=== PATIENT | male | born 1965 | race Caucasian/White ===

== ENCOUNTER 2016-11-17 20:25 | Observation (INO) ==
[2016-11-17] MEDS ORDERED: *HR* HYDROmorphone (PF) 1 MG/ML SYRINGE IVP ONE (20:50)
--- NOTE | 2016-11-17 20:58 | Emergency Department Note ---
Disposition Clinical Impression: Syncope and collapse Laceration of chin Qualifiers: Encounter type: initial encounter Qualified Code(s): S01.81XA - Laceration without foreign body of other part of head, initial encounter Chest pain Qualifiers: Chest pain type: unspecified Qualified Code(s): R07.9 - Chest pain, unspecified Disposition: Admitted As Inpatient Condition: Fair Time of Disposition: 23:00 General Adult HPI - General Chief complaint: ED Syncope Stated complaint: syncope Time Seen by Provider: 11/17/16 20:34 Source: EMS Mode of arrival: EMS Limitations: no limitations Nursing Notes Reviewed: Yes Vital Signs Reviewed: Yes - History of Present Illness HPI Narrative: Patient is a 51-year-old male with a past medical history of a stroke with no residual deficits who presents to the emergency Department by squad prior to arrival the patient had a syncopal episode and fell forward onto his face. Patient states he was in the grocery store he is walking and he had a coughing fit and then the next he remembers he was on the floor with a bloody nose and chin. EMS states that on arrival the patient was hypotensive at 70's over 40's however they gave him a 1 L bolus and the patient became normotensive. The patient states that he was recently diagnosed with bronchitis 3 weeks ago and has had coughing fits over the past 3 weeks. He is also complaining of some central chest pain that is pressure like that has been going on since after the fall. He denies any sensory or motor loss. No urinary or bowel incontinence. No history of blood clots. He states his chest pain is not worse with a deep breath and is constant. He denies any nausea, vomiting he states he did become diaphoretic in the ambulance no radiation of his chest pain. Pain Scale: 5 - Related Data Home Medications Medication Instructions Recorded Confirmed Aspirin 81 mg PO DAILY 07/06/16 11/17/16 Atorvastatin Calcium [Lipitor] 80 mg PO HS 07/06/16 11/17/16 Allergies Allergy/AdvReac Type Severity Reaction Status Date / Time No Known Allergies Allergy Verified 07/21/16 13:35 All systems ED: reviewed and negative except as stated. Constitutional: Denies: fever, chills Cardiovascular: Reports: chest pain, syncope. Denies: palpitations, dyspnea on exertion Respiratory: Reports: cough. Denies: dyspnea, wheezes, hemoptysis Gastrointestinal: Denies: abdominal pain, nausea, vomiting, diarrhea Musculoskeletal: Denies: back pain, neck pain Neurological: Denies: headache, weakness, numbness, paresthesias, confusion Past Medical History - Past Medical History Medical history: Reports: non-contributory, CVA Psychiatric history: Reports: no psych history - Social History Smoking Status: Current every day smoker Smokeless Tobacco Status: No Alcohol use: Reports: none, occasionally Drug use: Reports: none Physical Exam Patient arrived by stretcher by squad. In the room the patient has a bandage on his head to cover his chin wound he also has some dried red blood in his both nares. He is alert and oriented 3 and speaking in full sentences he does not appear to be in any distress however he does seem to have some chest discomfort. - General Limitations: no limitations General appearance: alert, in no apparent distress - Head Head exam: normocephalic, other (Patient does have a 3.5 cm linear laceration on his inferior chin. The bleeding is controlled at this time. The wound is open by about half a centimeter. It appears to go into the subcutaneous tissue. ) - ENT ENT exam: normal oropharynx, mucous membranes moist, TM's normal bilaterally, normal external ear exam - Expanded ENT Exam TM/Canal: Hemotympanum: Negative, Bulging: Negative, Effusion: Negative Nose exam: other (Patient has dried blood in both nares. ). negative: septal hematoma Mouth exam: Present: normal external inspection, tongue normal. Absent: drooling, lip swelling Teeth exam: Absent: gingival swelling Throat exam: Present: normal inspection - Neck Neck exam: Present: normal inspection, full ROM, trachea midline. Absent: tenderness - Chest Chest inspection: Present: symmetric chest wall rise, tenderness (Patient's chest pain is reproducible over the sternum and the right side.) - Respiratory Respiratory exam: Present: normal lung sounds bilaterally. Absent: respiratory distress - Cardiovascular Cardiovascular exam: Present: regular rate, normal rhythm, normal heart sounds - Abdominal Exam Abdominal exam: Present: soft, Non-Tender, normal bowel sounds - Extremities Exam Extremities exam: Present: normal inspection, full ROM, normal capillary refill. Absent: tenderness, pedal edema, joint swelling - Expanded Lower Extremity Exam Neurovascular/Tendon exam: Present: normal capillary refill. Absent: pulse deficit, motor deficit, sensory deficit - Back Exam Back exam: Present: normal inspection, full ROM. Absent: tenderness, paraspinal tenderness, vertebral tenderness - Neurological Exam Neurological exam: Present: alert, oriented X3, CN II-XII intact. Absent: motor sensory deficit - Expanded Neurological Exam Patient oriented to: Present: person, place, time Speech: Present: fluid speech Cranial nerves: EOM function (II, III, IV, ): Normal, facial sensation (V): Normal, facial palsy (VII): Normal, gag reflex (IX): Normal, spinal accessory function (XI): Normal, tongue deviation (XII): Normal Cerebellar function: finger to nose: Normal, heel to hung: Normal Motor strength - LUE: 5/5 Motor strength - RUE: 5/5 Motor strength - LLE: 5/5 Motor strength - RLE: 5/5 Upper motor neuron exam: pronator drift: Absent bilaterally Sensory exam upper extremity: light touch: Normal Sensory exam lower extremity: light touch: Normal DTR: bicep (L): 2+, bicep (R): 2+, patellar (L): 2+, patellar (R): 2+ Coma Scale Eye Opening: Spontaneous Coma Scale Motor Response: Obeys Commands Coma Scale Verbal Response: Oriented Coma Scale Total: 15 - Psychiatric Psychiatric exam: Present: normal affect, normal mood - Skin Skin exam: Present: warm, dry, intact, normal color Course Course Narrative: Patient is a 51-year-old male with a history of stroke with no residual deficits and the recently diagnosed bronchitis that was walking in a store knee had a coughing fit and he woke up face down on the floor with a bloody chin and a bloody nose. The patient also has some chest pain after the fall. She does not have any focal neurological deficits. His chest pain is reproducible. He is alert and oriented 3 and in no distress. He does have a chin laceration at about 3 cm in length. Due the patient's mechanism of injury of ordered a CT of his head and the C-spine. Also we will perform a cardiac workup of the patient. Including a chest x-ray. Also ordered d-dimer due to the description of the patient having a syncopal episode. No history of blood clots. The patient states he thinks he may be on blood thinners he is unsure. I will treat his pain while he is here. I will also order a CT of his facial bones due to his nose injury and is chin laceration. It if this is all normal and no foreign body is seen we will clean and irrigate the wound on his chin and suture it closed. - Reevaluation(s) Reevaluation #1: After the patient of his negative CT scans. I also discussed with them earlier the reason for his CTA of his chest due to his elevated d-dimer. I discussed with the patient like to admit him just for further observation and evaluation of the syncope. The patient states that he would feel more comfortable being admitted. I plan is to suture his laceration and admit the patient to the hospitalist. Patient agrees with that plan. Time: 22:38 Reevaluation #2: I discussed the patient's case with Dr. Polanco. Dr. Polanco agrees to admit the patient for further evaluation of the syncope. Time: 22:59 Vital Signs Temperature 0 F L 11/17/16 20:27 Pulse Rate 64 11/17/16 20:27 Respiratory Rate 18 11/17/16 20:27 Blood Pressure 99/91 11/17/16 20:27 O2 Sat by Pulse Oximetry 95 11/17/16 20:27 Temperature 98.2 F 11/18/16 00:43 Pulse Rate 62 11/18/16 00:43 Respiratory Rate 18 11/18/16 00:43 Blood Pressure 121/67 11/18/16 00:43 O2 Sat by Pulse Oximetry 97 11/18/16 00:43 Oxygen Delivery Oxygen Delivery Room Air Procedures - Laceration Laceration 1 Site: face Size (cm): 3 Description: linear Depth: simple, single layer Local Anesthetic: lidocaine 1%, with epi Pre-repair: wound explored, irrigated extensively, deep structures intact, wound margins revised Skin layer closed with: nylon Size: 3-0 Number of sutures/esther: 5 Technique: simple, interrupted, other (1 vertical mattress) Medical Decision Making - Medical Records Medical records reviewed: Yes I reviewed the patient's medical records. - Lab Data Lab results reviewed: Yes I reviewed the patient's lab results. Result diagrams: 11/17/16 20:50 11/17/16 20:50 Lab Results 11/17/16 11/17/16 11/17/16 Range/Units 20:50 20:50 20:50 WBC 18.3 H (4.3-11.1) K/mcL RBC 4.82 (4.19-5.50) M/mcL Hgb 15.2 (12.9-16.9) g/dL Hct 45.1 (37.5-50.1) % MCV 93.6 (83.0-100.0) fL MCH 31.5 (28.0-33.3) pg MCHC 33.7 (31.6-35.5) g/dL RDW 12.6 (11.5-14.5) % Plt Count 230 (140-400) K/mcL MPV 10.1 (9.4-12.4) fL Immature Gran % 0.4 (0-4) % Seg Neutrophils % 86.5 % Lymphocytes % 7.3 % Monocytes % 4.7 % Eosinophils % 0.8 % Basophils % 0.3 % Neutrophils # 15.8 H (1.6-8.9) K/mcL Lymphocytes # 1.3 (0.6-4.6) K/mcL Monocytes # 0.9 (0.0-1.3) K/mcL Eosinophils # 0.2 (0.0-0.6) K/mcL Basophils # 0.1 (0.0-0.2) K/mcL PT 10.8 (9.4-12.1) Seconds INR 1.0 D-Dimer 2009 H (0-500) ng/mLFEU Sodium 139 (136-145) mEq/L Potassium 4.3 (3.5-4.5) mEq/L Chloride 106 (98-109) mEq/L Carbon Dioxide 26 (19-29) mEq/L BUN 8 (8-26) mg/dL Creatinine 1.00 (0.72-1.25) mg/dL Est GFR ( Amer) > 60 (> 60) Est GFR (Non-Af Amer) > 60 (> 60) BUN/Creatinine Ratio 8 (6-26) Glucose 107 H (70-99) mg/dL Calculated Osmolality 287 (280-300) Calcium 8.6 (8.6-10.8) mg/dL Troponin I (0-0.03) ng/mL 11/17/16 Range/Units 20:50 WBC (4.3-11.1) K/mcL RBC (4.19-5.50) M/mcL Hgb (12.9-16.9) g/dL Hct (37.5-50.1) % MCV (83.0-100.0) fL MCH (28.0-33.3) pg MCHC (31.6-35.5) g/dL RDW (11.5-14.5) % Plt Count (140-400) K/mcL MPV (9.4-12.4) fL Immature Gran % (0-4) % Seg Neutrophils % % Lymphocytes % % Monocytes % % Eosinophils % % Basophils % % Neutrophils # (1.6-8.9) K/mcL Lymphocytes # (0.6-4.6) K/mcL Monocytes # (0.0-1.3) K/mcL Eosinophils # (0.0-0.6) K/mcL Basophils # (0.0-0.2) K/mcL PT (9.4-12.1) Seconds INR D-Dimer (0-500) ng/mLFEU Sodium (136-145) mEq/L Potassium (3.5-4.5) mEq/L Chloride (98-109) mEq/L Carbon Dioxide (19-29) mEq/L BUN (8-26) mg/dL Creatinine (0.72-1.25) mg/dL Est GFR ( Amer) (> 60) Est GFR (Non-Af Amer) (> 60) BUN/Creatinine Ratio (6-26) Glucose (70-99) mg/dL Calculated Osmolality (280-300) Calcium (8.6-10.8) mg/dL Troponin I 0.00 (0-0.03) ng/mL - Radiology Data Radiology results reviewed: Yes I reviewed the patient's radiology results. Attestation Statement - Attestation Attestation: I personally interviewed and examined this patient and my medical decision- making was reviewed with the Resident Physician, Dr. Pierre. I agree with the documented findings, disposition and treatment plan as described except to the extent set forth below. Patient is a 51-year-old white male, who presents to the emergency department today by EMS after medics were called for an unresponsive patient. Medics report that the patient was seated on a curb and was having transient altered mental status changes on their arrival. After they arrived he did have a second syncopal episode witnessed by medics and on their vitals was significantly hypotensive. Initiated IV fluids, an Accu-Chek which was within normal limits and brought the patient to the ED. Apparently he was coughing while in a store and had a syncopal episode in which he fell forward striking his chin on the ground and sustaining a superficial chin LAC. Patient reports upon waking he was still feeling very lightheaded and was having some chest tightness with ongoing cough. Patient arrived to the emergency department awake alert and oriented 4 with a GCS 15 on arrival. Speech was clear and no focal neurologic deficits. Initial vitals in the ED were much improved with a normal heart rate and blood pressure. Patient had received about 600 mL's of fluid by the time he arrived to the ED. Patient complained of some recent upper respiratory symptoms and bronchitis-like symptoms but felt that most of the pleuritic chest pain began following the initial syncope. I agree with patient's physical exam findings as documented. Patient's EKG showed no acute ischemic changes. Patient was continued on a environmental monitoring specialist and continuous pulse ox, submental oxygen was placed in a cervical collar for C-spine immobilization IV was established and labs are drawn and sent. Patient remained hemodynamically stable throughout his ED course. He had no recurrent symptoms of lightheadedness or syncope. Patient's neurologic exam remained stable over time as well. Patient had an update of his tetanus and was sent for imaging CT scan of his head maxillofacial bones cervical spine, chest x-ray. All patient's imaging studies were unremarkable. Labs including troponin were unremarkable with the exception of an elevated d-dimer. Patient underwent CT of the chest which was negative for PE. Patient underwent laceration repair, please see procedure note. Patient will be admitted for further evaluation of syncope with chest pain. Case was discussed with the hospitalist to accept the patient for admission
[2016-11-17] MEDS ORDERED: Ondansetron 4 MG/2 ML VIAL IVP ONE (21:07)
[2016-11-17 21:13] LABS: Basophils # 0.1 K/mcL (0.0-0.2); Basophils % 0.3 %; Eosinophils # 0.2 K/mcL (0.0-0.6); Eosinophils % 0.8 %; Hematocrit 45.1 % (37.5-50.1); Hemoglobin 15.2 g/dL (12.9-16.9); Immature Granulocytes % 0.4 % (0-4); Lymphocytes # 1.3 K/mcL (0.6-4.6); Lymphocytes % 7.3 %; Mean Corpuscular HGB Conc 33.7 g/dL (31.6-35.5); Mean Corpuscular Hemoglobin 31.5 pg (28.0-33.3); Mean Corpuscular Volume 93.6 fL (83.0-100.0); Mean Platelet Volume 10.1 fL (9.4-12.4); Monocytes # 0.9 K/mcL (0.0-1.3); Monocytes % 4.7 %; Neutrophils # 15.8 K/mcL (1.6-8.9); Platelet Count 230 K/mcL (140-400); Red Blood Count 4.82 M/mcL (4.19-5.50); Red Cell Distribution Width 12.6 % (11.5-14.5); Segmented Neutrophils % 86.5 %
[2016-11-17 21:20] LABS: Prothrombin Time 10.8 Seconds (9.4-12.1)
[2016-11-17 21:25] LABS: BUN/Creatinine Ratio 8 (6-26); Blood Urea Nitrogen 8 mg/dL (8-26); Calcium 8.6 mg/dL (8.6-10.8); Carbon Dioxide 26 mEq/L (19-29); Chloride 106 mEq/L (98-109); Glucose 107 mg/dL (70-99); Osmolality,Calculated 287 (280-300); Potassium 4.3 mEq/L (3.5-4.5); Sodium 139 mEq/L (136-145); eGFR For African Americans > 60 (> 60); eGFR For Non-African Americans > 60 (> 60)
[2016-11-17] MEDS ORDERED: Acetaminophen 325 MG TABLET PO PRN (23:45)
[2016-11-17] MEDS ORDERED: Ondansetron 4 MG/2 ML VIAL IVP PRN (23:45)
--- NOTE | 2016-11-17 23:54 | Internal Med History&Physical ---
<Brice Cruz - Last Filed: 11/17/16 23:59> Date of Encounter: 11/17/16 Time of Encounter: 23:00 Assessment and Plan (1) Syncope and collapse Current visit: Yes Status: Acute - Likely vasovagal (given it's associated with coughing fit) in the setting of hypotension (given hypotension noted by EMS at scene and reported reduced oral intake with diarrhea). - Check orthostatic vital signs. - Obtain Holter monitoring and echocardiogram for further evaluation of possible cardiac cause. - Hydration with IV fluid. - PT/OT consulted. - Closely monitor. Possible discharge tomorrow if all the cardiac work-up is negative. (2) Tobacco abuse Current visit: Yes Status: Acute - Smoking cessation counseling. - Nicotine patch if patient prefers. (3) Laceration of chin Current visit: Yes Status: Acute - S/p cleaning, irrigation and suturing. - Tylenol prn pain. Qualifiers: Encounter type: initial encounter Qualified Code(s): S01.81XA - Laceration without foreign body of other part of head, initial encounter (4) History of CVA (cerebrovascular accident) Current visit: Yes Status: Acute - Without residual deficit. - Continue aspirin and statin. Internal Medicine - H&P: HPI Chief complaint: Syncope Admitted From: Emergency Dept Plans for Post Hospital Care: Home History of present illness: Mr. Zelaya is a 51 year old male with history of CVA without residual deficiency. Patient was sent to [facility] ED after a syncopal episode. Patient was walking in the supermarket and had a coughing fit. And next second patient woke up on the floor with pool of blood as he fell forward onto face and caused nose and chin bleeding. EMS was called and patient was noted to have HR 55, BP 70/51 , RR 18, O2 sat 95% and glucose 106 at the scene. Patient reports having coughing fit and associated chest pain on cough for one week and half and he does notice some lightheadedness and shortness of breath when he coughs. Patient also reports having diarrhea for past 2 days and reduced oral intake due to nausea and lack of appetite. Patient denies fever, chills, chest pain, palpitation, neck pain, vomiting, vision change, hearing change, numbness/ tingling, focal weakness, dysuria, hematuria, incontinence, easily bleeding/ bruise. Patient states no one seems to witness his syncopal episode. Patient reports returning to his normal mental status within 2-3 minutes after he woke up. Patient denies known history of seizure. Patient reports having echocardiogram and stress test done at [facility] 5 years and was told those results are normal. Patient is full code. CT head found no acute intracranial abnormality. CT cervical spine and face found no acute abnormality except soft tissue laceration of the chin. CT chest was obtained given patient's highly elevated D-dimer (2008) and it found no evidence of pulmonary embolism or acute pulmonary abnormality. The chin laceration was cleaned, irrigated and sutured. Past Med Surg Social Fam HX - Past Medical History Medical history: non-contributory, CVA Psychiatric history: no psych history - Past Surgical History Surgical History: other (Scalp cyst excision) - Social History Smoking Status: Current every day smoker Smokeless Tobacco Status: No Alcohol use: none, occasionally (four to five 12-16 oz beers per weeks.) Drug use: none - Family History Father Living Status: Hx Family Cancer: Yes (lung cancer) Mother Hx Family Medical Disorders: Yes (DVT) Internal Medicine - H&P: Meds Aspirin 81 mg PO DAILY 07/06/16 [History] Atorvastatin Calcium [Lipitor] 80 mg PO HS 07/06/16 [History] Allergies No Known Allergies Allergy (Verified 07/21/16 13:35) All Systems PM: A 10-system review of systems was performed and is negative for pertinent findings except as documented above in the HPI. - Constitutional Constitutional: as per HPI, anorexia, chills, fatigue, falls, no fever(s) - EENT Eyes: no change in vision Ears: no decreased hearing Nose, mouth and throat: no dysphagia, no odynophagia - Cardiovascular Cardiovascular ROS IM: lightheadedness, syncope, no chest pain, no edema, no palpitations - Respiratory Respiratory: cough, dyspnea, pain with cough, no hemoptysis - Gastrointestinal Gastrointestinal: diarrhea, nausea, no abdominal pain, no hematochezia, no melena, no vomiting - Genitourinary Genitourinary ROS male: no difficulty urinating, no dysuria, no hematuria - Musculoskeletal Musculoskeletal ROS IM: no arthralgias, no myalgias - Integumentary Integumentary IM: no pruritus, no rash - Neurological Neurological ROS: no focal weakness, no numbness, no tingling - Hematologic/Lymphatic Hematologic/Lymphatic: no easy bleeding, no easy bruising - Constitutional Vitals: Temp Pulse Resp BP Pulse Ox 98.2 F 64 18 137/78 96 11/17/16 20:59 11/17/16 22:11 11/17/16 22:11 11/17/16 22:11 11/17/16 22:11 General appearance: Present: cooperative, A&O X 3, no acute distress, answers questions appropriately - Head Head exam: Present: atraumatic, normocephalic - Eye Eye exam: Present: EOMI, PERRL, conjuntiva pink, sclera anicteric - Neck Neck exam general surgery: Present: supple, trachea midline. Absent: lymphadenopathy - Respiratory Respiratory exam: Present: chest wall tenderness (Reproducible substernal chest pain.), CTAB. Absent: accessory muscle use, rales, rhonchi, wheezes - Cardiovascular Cardiovascular exam: Present: RRR, +S1, +S2. Absent: diastolic murmur, gallop, rubs, systolic murmur - GI/Abdominal GI/Abdominal exam: Present: normal bowel sounds, soft, no peritoneal signs. Absent: distended, tenderness - Extremities Exam Extremities exam: Present: warm, radial pulses palpable and symmetrical. Absent : calf tenderness, cyanotic, pedal edema - Neurological Exam Neurological exam: Present: CN II-XII intact, oriented X3, no focal deficits. Absent: pronater drift, facial droop, speech deficit - Skin Skin exam: Present: dry, intact, warm Internal Med - H&P Results - Labs CBC & Chem 7: 11/17/16 20:50 11/17/16 20:50 - EKG Data -: EKG Interpreted by Myself EKG shows normal: sinus rhythm Rate: normal - EKG Data Prior EKG available for review: yes When compared to previous EKG: there is no significant change Interpretation IM: normal EKG <Alvarez Polanco - Last Filed: 11/18/16 01:11> Date of Encounter: 11/18/16 Internal Medicine - H&P: HPI History of present illness: Mr. Zelaya is a 51 year old male All Systems PM: A 10-system review of systems was performed and is negative for pertinent findings except as documented above in the HPI. - Constitutional Vitals: Temp Pulse Resp BP Pulse Ox 98.2 F 62 18 121/67 97 11/18/16 00:43 11/18/16 00:43 11/18/16 00:43 11/18/16 00:43 11/18/16 00:43 Internal Med - H&P Results - Labs CBC & Chem 7: 11/17/16 20:50 11/17/16 20:50 - Attending Attestation I examined this patient and my medical decision-making was reviewed with the Resident Physician. I agree with the documented findings, disposition and treatment plan as described except to the extent set forth below. He was at a store, developed a coughing fit, unable to catch breathe and collapsed face first needing facial stitches. Was reported to have a recent 1 month hx of bronchitic exacerbation. Denies any cardiac hx or seizure. ROS 14 point review of systems reviewed as best as possible given presentation. Pertinent positive or negative as per HPI or otherwise reviewed as negative General - AAO x 3 Psych - Appropriate affect/speech. No agitation Eyes - JULIO. Eye lids intact. No scleral icterus ENT - Oral mucosa pink, dentition intact. External ear clear/dry/intact. No thyromegaly Lymphatics - No cervical/inguinal lympadenopathy Neuro - No gross peripheral or central neuro deficits with intact CN 2-12 exam Heart - Sinus. RRR. S1 and S2 present. No added HS/murmurs appreciated. No elevated JVD appreciated. No calf swellings/erythema Lung - Adequate air entry b/l, No crackes/wheezes appreciated GI - Soft, non-tender. No hepatosplenomegaly/ascities. BS+ - No CVA/suprapubic tenderness or palpable bladder distension Skin - Intact. No rash/petechiae/ecchymosis. Warm extremities MSK - Joints with normal ROM. No joint swellings CTA negative Trauma screen with superficial laceration A/P Syncope 2/2 to acute coughing fit and unable to catch breath - observation, IVF, orthostat - check TTE - ambulate Laceration of chin - s/p stitches in the ED Tobacco abuse Hx of CVA
[2016-11-18] MEDS: 0.9 % Sodium Chloride 1,000 ML IVC SCH ×2 (00:59→09:08)
[2016-11-18 05:29] LABS: BUN/Creatinine Ratio 7 (6-26); Blood Urea Nitrogen 7 mg/dL (8-26); Calcium 8.4 mg/dL (8.6-10.8); Carbon Dioxide 26 mEq/L (19-29); Chloride 106 mEq/L (98-109); Glucose 109 mg/dL (70-99); Osmolality,Calculated 287 (280-300); Potassium 4.2 mEq/L (3.5-4.5); Sodium 139 mEq/L (136-145); eGFR For African Americans > 60 (> 60); eGFR For Non-African Americans > 60 (> 60)
[2016-11-18 05:32] LABS: Basophils # 0.1 K/mcL (0.0-0.2); Basophils % 0.7 %; Eosinophils # 0.1 K/mcL (0.0-0.6); Eosinophils % 1.2 %; Hematocrit 42.7 % (37.5-50.1); Hemoglobin 14.6 g/dL (12.9-16.9); Immature Granulocytes % 0.3 % (0-4); Lymphocytes # 2.4 K/mcL (0.6-4.6); Lymphocytes % 22.7 %; Mean Corpuscular HGB Conc 34.2 g/dL (31.6-35.5); Mean Corpuscular Hemoglobin 31.9 pg (28.0-33.3); Mean Corpuscular Volume 93.2 fL (83.0-100.0); Mean Platelet Volume 10.7 fL (9.4-12.4); Monocytes # 0.8 K/mcL (0.0-1.3); Monocytes % 7.7 %; Platelet Count 216 K/mcL (140-400); Red Blood Count 4.58 M/mcL (4.19-5.50); Red Cell Distribution Width 12.9 % (11.5-14.5); Segmented Neutrophils % 67.4 %
[2016-11-18 05:52] LABS: Thyroid Stimulating Hormone 0.527 mcIU/mL (0.350-4.840)
[2016-11-18] MEDS: Aspirin 81 MG TAB.CHEW PO SCH (09:08)
[2016-11-18] MEDS ORDERED: Acetaminophen 325 MG TABLET PO PRN (13:44)
[2016-11-18] MEDS ORDERED: Ipratropium/Albuterol Neb 3 ML IH PRN (16:28)
--- NOTE | 2016-11-18 16:28 | Internal Med Progress Note ---
<Elizabeth Baires - Last Filed: 11/18/16 16:26> Date of Encounter: 11/18/16 Time of Encounter: 08:00 - Assessment and plan (1) Syncope and collapse Current Visit: Yes Status: Acute Assessment and plan: likely vasovagal, possible dehydration. Orthostatics negative Echo showed LVEF 60-65%, normal LV chamber size, wall thickness, and funciton normal RV structure and function no evidence of pulmonary HTN no valvular dysfunction. carotid duplex pending. PT/OT Plan: possible discharge tomorrow with holter monitor. PT/OT recommends outpatient physical therapy. (2) Tobacco abuse Current Visit: Yes Status: Acute Assessment and plan: smoking cessation advised (3) Laceration of chin Current Visit: Yes Status: Acute Assessment and plan: sutures placed tylenol PRN Qualifiers: Encounter type: initial encounter Qualified Code(s): S01.81XA - Laceration without foreign body of other part of head, initial encounter (4) History of CVA (cerebrovascular accident) Current Visit: Yes Status: Acute Assessment and plan: no residual deficits continue ASA and statin (5) DVT prophylaxis Current Visit: Yes Status: Acute Assessment and plan: Heparin SQ - Subjective Interval history: 51 year old male evaluated at bedside. he denies nausea, vomiting, diarrhea. admits to hc[facility]. he denies chest pain, SOB. he has no complaints today. - Constitutional Vitals: Temp Pulse Resp BP Pulse Ox 98.2 F 58 17 124/64 96 11/18/16 16:08 11/18/16 16:08 11/18/16 16:08 11/18/16 16:08 11/18/16 16:08 General appearance: Present: cooperative, A&O X 3, no acute distress, answers questions appropriately - Head Additional comments: laceration of chin - Neck Neck exam general surgery: Present: supple, trachea midline - Respiratory Respiratory exam: Present: wheezes - Cardiovascular Cardiovascular exam: Present: RRR, +S1, +S2 - GI/Abdominal GI/Abdominal exam: Present: soft. Absent: distended, tenderness - Extremities Exam Extremities exam: Absent: cyanotic, pedal edema - Neurological Exam Neurological exam: Present: alert, oriented X3, no focal deficits Internal Medicine: Result - Labs CBC & Chem 7: 11/18/16 04:41 11/18/16 04:41 Labs: Short CBC 11/18/16 Range/Units 04:41 WBC 10.4 (4.3-11.1) K/mcL Hgb 14.6 (12.9-16.9) g/dL Hct 42.7 (37.5-50.1) % Plt Count 216 (140-400) K/mcL Neutrophils # 7.0 (1.6-8.9) K/mcL BMP 11/18/16 04:41 Sodium 139 Potassium 4.2 Chloride 106 Carbon Dioxide 26 BUN 7 L Creatinine 0.95 Glucose 109 H Calcium 8.4 L - ABG Interpretation ABG results: PT/INR, D-dimer PT 10.8 Seconds (9.4-12.1) 11/17/16 20:50 D-Dimer 2009 ng/mLFEU (0-500) H 11/17/16 20:50 Consult Discharge Plan - Plan Referrals: Alejandra Rodrigez DO [Primary Care Provider] - 11/26/16 10:20 am (please follow up as schedule... [phone] res. clinic number) <Rickie Davis T - Last Filed: 11/18/16 17:12> Date of Encounter: 11/18/16 - Constitutional Vitals: Temp Pulse Resp BP Pulse Ox 98.2 F 58 17 124/64 96 11/18/16 16:08 11/18/16 16:08 11/18/16 16:08 11/18/16 16:08 11/18/16 16:08 Internal Medicine: Result - Labs CBC & Chem 7: 11/18/16 04:41 11/18/16 04:41 Labs: Short CBC 11/18/16 Range/Units 04:41 WBC 10.4 (4.3-11.1) K/mcL Hgb 14.6 (12.9-16.9) g/dL Hct 42.7 (37.5-50.1) % Plt Count 216 (140-400) K/mcL Neutrophils # 7.0 (1.6-8.9) K/mcL BMP 11/18/16 04:41 Sodium 139 Potassium 4.2 Chloride 106 Carbon Dioxide 26 BUN 7 L Creatinine 0.95 Glucose 109 H Calcium 8.4 L - ABG Interpretation ABG results: PT/INR, D-dimer PT 10.8 Seconds (9.4-12.1) 11/17/16 20:50 D-Dimer 2009 ng/mLFEU (0-500) H 11/17/16 20:50 - Attending Attestation I examined this patient and my medical decision-making was reviewed with the Resident Physician on 11/18/16. I agree with the documented findings, disposition and treatment plan as described except to the extent set forth below. 51 M admitted and being managed for vasovagal syncope following a cough spell Hypotension improved with IVF Work up negative so far ECHO and Carotid doppler is pending He is on telemetry He denied any complains on review His chin lac was sutured Physical exam is unremarkable, vitals are stable, orthostatics negative Continue current care PT/OT eval Pain control Rest as in resident's documentation above
[2016-11-18] MEDS: Ibuprofen 800 MG TABLET PO PRN (17:00)
[2016-11-18] MEDS: *HR* Heparin 5,000 UNIT/ML VIAL SQ SCH (17:00)
--- NOTE | 2016-11-18 20:26 | Electrocardiograph Report ---
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
[2016-11-19] MEDS: *HR* Heparin 5,000 UNIT/ML VIAL SQ SCH (05:42)
[2016-11-19] MEDS: Ibuprofen 800 MG TABLET PO PRN (05:45)
--- NOTE | 2016-11-19 06:17 | Discharge Summary ---
<Elizabeth Baires - Last Filed: 11/19/16 11:49> Date of Encounter: 11/19/16 Time of Encounter: 06:15 - Discharge Diagnosis (1) Syncope and collapse Priority: Primary Status: Acute (2) Tobacco abuse Priority: Secondary Status: Acute (3) Laceration of chin Priority: Secondary Status: Acute Qualifiers: Encounter type: initial encounter Qualified Code(s): S01.81XA - Laceration without foreign body of other part of head, initial encounter (4) History of CVA (cerebrovascular accident) Priority: Secondary Status: Acute (5) DVT prophylaxis Priority: Secondary Status: Acute - Discharge Medications Prescriptions: Albuterol Sulfate [Albuterol Inhaler] 1 puff IH Q6H PRN #1 inhaler PRN Reason: Bronchospasm Fluticasone/Vilanterol [Breo Ellipta 100-25 Mcg INH] 1 each IH DAILY #1 blst.w.dev GuaiFENesin ER [Mucinex] 600 mg PO BID PRN #28 tbbp.12hr PRN Reason: Cough Home Medications: Aspirin 81 mg PO DAILY 07/06/16 [History] Atorvastatin Calcium [Lipitor] 80 mg PO HS 07/06/16 [History] Acetaminophen [Tylenol] 650 mg PO Q6HR PRN tab 11/19/16 [Rx] Albuterol Sulfate [Albuterol Inhaler] 1 puff IH Q6H PRN #1 inhaler 11/19/16 [Rx] Fluticasone/Vilanterol [Breo Ellipta 100-25 Mcg INH] 1 each IH DAILY #1 blst.w.dev 11/19/16 [Rx] GuaiFENesin ER [Mucinex] 600 mg PO BID PRN #28 tbbp.12hr 11/19/16 [Rx] Allergies/Adverse Reactions: Allergies No Known Allergies Allergy (Verified 07/21/16 13:35) Procedures/tests Complete & Pending: Procedures Performed prior 72 hours Category Date Time Status ECG 12 lead ECG [ECG] Routine Y 11/17/16 20:35 Completed ECG 24 holter monitor setup [ECG] Routine Y 11/17/16 23:47 Ordered EV carotid duplex imaging BI Routine Y 11/18/16 16:34 Completed EV echocardiogram Routine Y 11/18/16 23:47 Completed Date of admission: 11/17/16 23:24 Primary care physician: Alejandra Rodrigez DO Consults: 11/18/16 00:31 Consult to Physical Therapy [CONS] Routine Comment: Evaluate, develop and implement POC Reason for Consult: Syncope. OT [Consult to Occupational Therapy] [CONS] Routine Comment: Evaluate, develop and implement POC Reason for Consult: Syncope. - Patient Status Disposition: Home, Self-Care Condition: Fair Functional capacity at discharge: independent ambulation Overall status at discharge: patient is back to baseline - Ambulatory Orders Ambulatory Orders: ECG event monitor [ECG] Time Frame: 2 Weeks, Facility: [facility], Location: Cardiopulmonary Svc Consult to Physical Therapy [CONS] Time Frame: 1 Day, Facility: [facility], Location: Lobby - Discharge Instructions Instructions: Decongestant/Expectorant (By mouth), Syncope (GEN) Follow Up With: Werner Veras MD [Partnered Physician] - (office will call you with an appointment date and time ) Alejandra Rodrigez DO [Primary Care Provider] - 11/26/16 10:20 am (please follow up as schedule... [phone] res. clinic number) Additional Instructions: Please go to outpatient physical therapy as recommended. please follow up with primary care doctor within one week of discharge take all medications as prescribed wear holter monitor at discharge for two weeks, and follow up with cardiology Please return to emergency department if you have any further episodes of passing out, develop chest pain, or shortness of breath. - Diet and Activity Activity: as per physical therapy Diet: low fat, low cholesterol Hospital course: Mr. Zelaya is a 51 year old male with PMHx of CVA without residual deficit, tobacco use. Patient arrived to [facility] on 11/17/16 with CC of syncopal episode at the store after a coughing episode. He was admitted for further workup. The patient lost consciousness for about 4-5 minutes. Patient had reported recent upper respiratory infection with congestion. He also had decreased appetite with some diarrhea before presentation to the hospital. Patient has no reported seizure history and reported no seizure like activity during his syncopal episde. Patient's EKG showed sinus rhythm with no acute ST changes noted. CXR showed no acute process and head CT showed no acute abnormality. His cervical spine and face CT were negative. Chest CTA was negative for PE. Echo showed LVEF 60-65%, normal LV chamber size, wall thickness, and function, normal RV structure and function, no evidence of pulmonary HTN, no valvular dysfunction. Preliminary bilateral carotid duplex showed normal bilateral carotids. Othostatic vitals were negative. It is likely that the patient's syncopal episode was vasovagal in nature. there may be a possible component of dehydration as well in the setting of his recent diarrhhea and poor oral intake. Patient did have some wheezing noted on exam with frequent coughing, likely from recent viral URI. When this resolves, he may benefit from outpatient PFTs, which can be discussed with PCP during hospital followup. Patient remained stable throughouthte course of his hospital stay and was stable at discharge. He will be discharged with holter monitor that he will wear for two weeks, then will follow up with cardiology. he will also complete outpatient physical therapy, for which script was given. discharge instructions: Patient may benefit from outpatient PFT due to his smoking history. Please go to outpatient physical therapy recommended. please follow up with primary care doctor within one week of discharge take all medications as prescribed wear holter monitor at discharge and follow up with cardiology Please return to emergency department if you have any further episodes of passing out, develop chest pain, or shortness of breath. Time spent discussing smoking cessation with patient: 3 to 10 minutes - Time Spent with Patient Total time spent providing and/or coordinating discharge services: Less than 30 minutes - Constitutional Vitals: Temp Pulse Resp BP Pulse Ox 97.6 F 49 16 134/77 96 11/19/16 04:34 11/19/16 04:34 11/19/16 04:34 11/19/16 04:34 11/19/16 04:34 General appearance: Present: cooperative, A&O X 3, no acute distress, answers questions appropriately - Head Head exam: Present: normocephalic (patient has laceration under his chin that had been sutured. ) - Neck Neck exam general surgery: Present: supple, trachea midline - Respiratory Additional comments: mild diffuse wheezing present. - Cardiovascular Cardiovascular exam: Present: bradycardia, +S1, +S2 - GI/Abdominal GI/Abdominal exam: Present: normal bowel sounds, soft. Absent: distended, tenderness - Extremities Exam Extremities exam: Absent: cyanotic, pedal edema - Neurological Exam Neurological exam: Present: alert, oriented X3, no focal deficits - Psychiatric Psychiatric exam: Present: normal affect, normal mood <Rickie Davis - Last Filed: 11/19/16 13:05> Date of Encounter: 11/19/16 Procedures/tests Complete & Pending: Procedures Performed prior 72 hours Category Date Time Status ECG 12 lead ECG [ECG] Routine Y 11/17/16 20:35 Completed ECG 24 holter monitor setup [ECG] Routine Y 11/17/16 23:47 Ordered EV carotid duplex imaging BI Routine Y 11/18/16 16:34 Completed EV echocardiogram Routine Y 11/18/16 23:47 Completed Date of admission: 11/17/16 23:24 Primary care physician: Alejandra Rodrigez, Consults: 11/18/16 00:31 Consult to Physical Therapy [CONS] Routine Comment: Evaluate, develop and implement POC Reason for Consult: Syncope. OT [Consult to Occupational Therapy] [CONS] Routine Comment: Evaluate, develop and implement POC Reason for Consult: Syncope. Hospital course: Mr. Zelaya is a 51 year old male - Time Spent with Patient Total time spent providing and/or coordinating discharge services: - Constitutional Vitals: Temp Pulse Resp BP Pulse Ox 97.6 F 51 17 137/76 96 11/19/16 07:41 11/19/16 07:41 11/19/16 07:41 11/19/16 07:41 11/19/16 07:41 - Attending Attestation I examined this patient and my medical decision-making was reviewed with the Resident Physician on 11/19/16. I agree with the documented findings, disposition and treatment plan as described except to the extent set forth below. 51 M admitted and being managed for vasovagal syncope following a cough spell Work up was negative Physical exam is unremarkable, vitals are stable, orthostatics negative Stale for discharge on outpatient PT, controller COPD medication, Albuterol prn , resume other home meds HOlter as out-patient Smoking cessation education done for 3 minutes Rest as in resident's documentation above
[2016-11-19 07:44] VITALS: BP 137/76
[2016-11-19] MEDS: Aspirin 81 MG TAB.CHEW PO SCH (08:26)
--- NOTE | 2016-11-20 12:51 | Carotid Imaging Report ---
Carotid Duplex Patient Name:Devon Zelaya Order Number:[id number] Procedure Date:11/18/2016 Date:1965Age:51 yrs Gender:Male Rt.BP:143 / 76 mmHgHeart Rate: Location:[facility] Room #: 2A25 Shirt Marker:Trish Hamilton, SHAUN Referring MD:Elizabeth Baires DO slipcover cutter:Alejandra Rodrigez DO Reading MD:Yan Tran MD , FACS Primary Indications:Syncope and collapse Risk Factors Yes/No Hypercholesterolemia Yes Smoking Current Yes Hx of CVA Yes Impressions: Findings: Bilateral carotid systems essentially normal. Findings Carotid Duplex: Right: The right proximal common carotid artery has a PSV of 90 cm/s and a EDV of 19 cm/s. The right mid common carotid artery has a PSV of 76 cm/s and a EDV of 21 cm/s. The right distal common carotid artery has a PSV of 71 cm/s and a EDV of 20 cm/s. The right bifurcation has a PSV of 47 cm/s and a EDV of 19 cm/s. There is nonstenotic plaque in the right proximal internal carotid artery with a PSV of 86 cm/s and a EDV of 26 cm/s. There is irregular heterogeneous plaque. The right mid internal carotid artery has a PSV of 120 cm/s and a EDV of 25 cm/s. The right distal internal carotid artery has a PSV of 100 cm/s and a EDV of 40 cm/s. The right eca has a PSV of 171 cm/s and a EDV of 26 cm/s. The right vertebral artery has a PSV of 63 cm/s and a EDV of 16 cm/s. There is antegrade spectral Doppler flow patterns. Left: The left proximal common carotid artery has a PSV of 114 cm/s and a EDV of 23 cm/s. The left mid common carotid artery has a PSV of 78 cm/s and a EDV of 17 cm/s. The left distal common carotid artery has a PSV of 67 cm/s and a EDV of 14 cm/s. The left bifurcation has a PSV of 43 cm/s and a EDV of 15 cm/s. There is nonstenotic plaque in the left proximal internal carotid artery with a PSV of 83 cm/s and a EDV of 20 cm/s. There is smooth plaque. The left mid internal carotid artery has a PSV of 76 cm/s and a EDV of 22 cm/s. The left distal internal carotid artery has a PSV of 76 cm/s and a EDV of 25 cm/s. The left eca has a PSV of 136 cm/s and a EDV of 22 cm/s. The left vertebral artery has a PSV of 57 cm/s and a EDV of 13 cm/s. There is antegrade spectral Doppler flow patterns. Prior Study: No prior study available for comparison. Carotid Results Right PSV EDV Assessment Proximal CCA 90 19 Mid CCA 76 21 Distal CCA 71 20 Bifurcation 47 19 Proximal ICA 86 26 Non Stenotic Plaque Mid ICA 120 25 Distal ICA 100 40 ECA 171 26 Vertebral Artery 63 16 Antegrade Flow Left PSV EDV Assessment Proximal CCA 114 23 Mid CCA 78 17 Distal CCA 67 14 Bifurcation 43 15 Proximal ICA 83 20 Non Stenotic Plaque Mid ICA 76 22 Distal ICA 76 25 ECA 136 22 Vertebral Artery 57 13 Antegrade Flow Ratio's Right ICA/CCA Ratio: 1.58 ICA/CCA Values: 120/76 Left ICA/CCA Ratio: 1.06 ICA/CCA Values: 83/78 Updated by Yan Tran MD, FACS on 11/20/2016 12:46:40 PM Yan Tran MD electronically signed on 11/20/2016 12:47:04 PM with status of Final
--- NOTE | 2016-11-20 15:01 | Electrocardiograph Report ---
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
== END 2016-11-19 13:33 | disposition home or self-care (01) ==
LOC: EMEROO 20:25 → 2ANU 20:25
PROVIDERS: ADMIT Internal Medicine Hematology & Oncology; ATTEND Internal Medicine